=== PATIENT | female | born 1935 | race Caucasian/White ===

== ENCOUNTER 2017-01-11 20:42 | Inpatient (IN) | payer MEDICARE, OTHER ==
[~2017-01-11] VITALS: Ht 165.1 cm; Wt 83.0 kg
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
[2017-01-11] MEDS ORDERED: MAGNESIUM HYDROXIDE 30 ML UDC PO PRN (21:00)
[2017-01-11] MEDS ORDERED: ACETAMINOPHEN 325 MG TABLET PO PRN (21:00)
[2017-01-11] MEDS ORDERED: LORAZEPAM 0.5 MG TABLET PO PRN (21:00)
[2017-01-11] MEDS ORDERED: MAG HYDROX/AL HYDROX/SIMETH 30 ML UDC PO PRN (21:00)
[2017-01-11] MEDS ORDERED: THIA100T13 PO (21:21)
[2017-01-11] MEDS ORDERED: WARF5TAB6 PO (21:21)
[2017-01-11] MEDS ORDERED: DIGO125T PO (21:21)
[2017-01-11] MEDS ORDERED: MULT1TAB73 PO (21:21)
[2017-01-11] MEDS ORDERED: SERT50TA PO (21:21)
[2017-01-11] MEDS ORDERED: METO50TA3 PO (21:21)
[2017-01-11] MEDS ORDERED: OLAN2.5T3 PO (21:21)
[2017-01-11] MEDS ORDERED: SULF1TAB48 PO (21:21)
[2017-01-11] MEDS ORDERED: POTA10CA43 PO (21:21)
[2017-01-11] MEDS ORDERED: MIRT15TA7 PO (21:21)
[2017-01-12 01:02] VITALS: BP 134/85
[2017-01-12 07:13] LABS: BASOPHILS # (AUTO) 0.1 /CMM (0.0-0.2); BASOPHILS % (AUTO) 0.9 % (0.0-2.0); EOSINOPHILS # (AUTO) 0.2 /CMM (0.0-0.7); EOSINOPHILS % (AUTO) 2.7 % (0.0-6.0); HEMATOCRIT 35 % (33-45); HEMOGLOBIN 11.5 g/dL (11.5-14.8); LYMPHOCYTES # (AUTO) 2.7 /CMM (0.8-4.8); LYMPHOCYTES % (AUTO) 33.1 % (20.0-44.0); MEAN CORPUSCULAR HEMOGLOBIN 32 PG (26.0-33.0); MEAN CORPUSCULAR HGB CONC 33 g/dl (31.0-36.0); MEAN CORPUSCULAR VOLUME 96 fL (82-100); MONOCYTES # (AUTO) 0.7 /CMM (0.1-1.30); MONOCYTES % (AUTO) 8.1 % (2.0-12.0); NEUTROPHILS # (AUTO) 4.5 /CMM (1.8-8.9); NEUTROPHILS % (AUTO) 55.2 % (43.0-81.0); PLATELET COUNT (AUTO) 268 /CMM (150-450); RDW COEFFICIENT OF VARIATION 14.8 (11.5-15.0); RED BLOOD CELL COUNT(AUTO) 3.62 MIL/uL (4.0-5.2); WHITE BLOOD COUNT (AUTO) 8.1 K/uL (4.3-11.0)
[2017-01-12 07:22] LABS: ALANINE AMINOTRANSFERASE 15 U/L (12-78); ALBUMIN 2.5 g/dL (3.4-5.0); ALKALINE PHOSPHATASE 74 U/L (46-116); ASPARTATE AMINOTRANSFERASE 18 U/L (15-37); BILIRUBIN,TOTAL 0.3 mg/dL (0.2-1.0); CALCIUM, SERUM 8.9 mg/dL (8.5-10.1); CARBON DIOXIDE 30 mmol/L (21-32); CHLORIDE 105 mmol/L (98-107); CREATININE 0.7 mg/dL (0.6-1.3); GLUCOSE 98 mg/dL (74-106); POTASSIUM 4.2 mmol/L (3.5-5.1); SODIUM SERUM 140 mmol/L (136-145); TOTAL PROTEIN, SERUM 7.1 g/dL (6.4-8.2); UREA NITROGEN, BLOOD 9 mg/dL (7-18)
[2017-01-12 07:29] LABS: CHOLESTEROL 231 mg/dL (<200); HDL CHOLESTEROL 53 mg/dL (40-60); LDL 160 mg/dL (0-99); TRIGLYCERIDES 94 mg/dL (30-150)
[2017-01-12 08:18] VITALS: BP 131/81
[2017-01-12] MEDS ORDERED: MIRTAZAPINE 15 MG TABLET PO SCH (09:00)
[2017-01-12] MEDS ORDERED: OLANZAPINE 2.5 MG TABLET PO SCH (09:00)
[2017-01-12] MEDS ORDERED: SERTRALINE HCL 50 MG TABLET PO SCH (09:00)
[2017-01-12] MEDS: METOPROLOL TARTRATE 50 MG TABLET PO SCH (10:25)
[2017-01-12] MEDS: THIAMINE HCL 100 MG TABLET PO SCH (10:25)
[2017-01-12] MEDS: MULTIVITAMINS,THERAGRAN 1 UDTAB TABLET PO SCH (10:25)
--- NOTE | 2017-01-12 10:59 | NUR ---
JOHNNIE received a call from Elsi at intake. Elsi informed SW that she spoke with Merlyn from [facility] [address], [place] [address], and that Merlyn stated that patient was accepted into [facility]. Elsi stated that Merlyn had a few questions for the SW. JOHNNIE gave Merlyn a call at [phone] and left a voicemail with detailed contact information.
--- NOTE | 2017-01-12 11:11 | NUR ---
WOUND CARE CONSULT PATIENT SEEN AND SKIN INTEGRITY ASSESSMENT DONE. PATIENT PRESENTS WITH DRY SCABBED ABRASIONS TO THE RIGHT AND LEFT ARMS, NO FURTHER GROIN REDNESS OR HIP REDNESS NOTED. PATIENT WITH ESPERANZA AT 18, DOES HAVE OCCASIONAL INCONT, RECOMMEND Z GUARD FOR MOISTURE MANAGEMENT. PATIENT CURRENTLY INDEPENDENT WITH BED MOBILITY AT THIS TIME. ALL DISCUSSED WITH NURSING AT THE BEDSIDE.
[2017-01-12 11:22] LABS: INR 2.23 (0.87-1.13); PROTHROMBIN TIME 23.4 SECS (9.5-12.7)
[2017-01-12] MEDS ORDERED: Z GUARD REMEDY 2 OZ OINT TP PRN (11:30)
[2017-01-12] MEDS: SULFAMETH/TRIMETH 800/160 MG 1 UDTAB TABLET PO SCH ×2 (11:56→16:46)
[2017-01-12] MEDS: POTASSIUM CHLORIDE 10 MEQ TABLET.SA PO SCH (11:56)
--- NOTE | 2017-01-12 12:00 | NUR ---
Initial Discharge Plan: Patient was at a facility, [facility], [address], [place] [id number] but will not continue there. JOHNNIE was informed by intake that patient was accepted into [facility] and JOHNNIE followed up with Merlyn from [facility] [address], [place] [address], and left a voicemail asking Merlyn to call her back. SW left detailed contact information. JOHNNIE also followed up with patient's son, Lucas [phone]. Lucas stated that he was on his way to the hospital and that he would like to speak with JOHNNIE in person. SW will help arrange safe and proper discharge.
[2017-01-12] MEDS: DIGOXIN 0.125 MG TABLET PO SCH ×2 (13:00→13:36)
[2017-01-12 16:00] VITALS: BP 116/63
--- NOTE | 2017-01-12 16:01 | NUR ---
JOHNNIE spoke with Merlyn from [facility] [address], [place] [address], who informed JOHNNIE that patient was not officially accepted yet because a skilled need has to be found. Merlyn asked JOHNNIE to fax over physical therapy assessment and stated that with the assessment, the facility can at least take patient in for a couple of weeks. JOHNNIE stated that there has been no physical therapy assessment yet but told Merlyn that she will follow up with MD and get an order placed. JOHNNIE will fax over PT assessment on Sunday and then the facility can see patient on Sunday.
[2017-01-12] MEDS: OLANZAPINE 2.5 MG TABLET PO SCH (16:46)
[2017-01-12] MEDS: DIVALPROEX SODIUM 125 MG TABLET.DR PO SCH ×2 (16:46→20:38)
[2017-01-12] MEDS: WARFARIN SODIUM 5 MG TABLET PO SCH (16:50)
[2017-01-12 20:00] VITALS: BP 132/69
[2017-01-12] MEDS: MIRTAZAPINE 15 MG TABLET PO SCH (21:13)
[2017-01-13 08:00] VITALS: BP 134/77
[2017-01-13] MEDS: POTASSIUM CHLORIDE 10 MEQ TABLET.SA PO SCH ×2 (09:00→09:38)
[2017-01-13] MEDS: MULTIVITAMINS,THERAGRAN 1 UDTAB TABLET PO SCH ×2 (09:00→09:37)
[2017-01-13] MEDS: OLANZAPINE 2.5 MG TABLET PO SCH ×3 (09:00→17:00)
[2017-01-13] MEDS: METOPROLOL TARTRATE 50 MG TABLET PO SCH ×2 (09:00→09:38)
[2017-01-13] MEDS: DIVALPROEX SODIUM 125 MG TABLET.DR PO SCH ×4 (09:00→21:00)
[2017-01-13] MEDS: SULFAMETH/TRIMETH 800/160 MG 1 UDTAB TABLET PO SCH ×3 (09:00→17:00)
[2017-01-13] MEDS: THIAMINE HCL 100 MG TABLET PO SCH ×2 (09:00→09:37)
--- NOTE | 2017-01-13 10:44 | NUR ---
GPS/RN PT REFUSED ALL AM MEDS OFFERED X3. TR RN OFFERED PT THE MEDS- PT REFUSED WELL. DR WOOD MADE AWARE. WILL CONTINUE TO MONITOR.
[2017-01-13] MEDS: DIGOXIN 0.125 MG TABLET PO SCH (13:00)
[2017-01-13 16:11] VITALS: BP 109/66
[2017-01-13] MEDS: WARFARIN SODIUM 5 MG TABLET PO SCH (17:00)
--- NOTE | 2017-01-13 17:57 | NUR ---
GPS/RN PT REFUSED MEDS OFFERED X3. REFUSE D MEDS FROM TR WRIGHT WELL OFFERED X3
[2017-01-13 20:00] VITALS: BP 134/76
[2017-01-13] MEDS: MIRTAZAPINE 15 MG TABLET PO SCH (21:36)
--- NOTE | 2017-01-13 21:37 | NUR ---
GPS/RN NOTES PT REFUSED NIGHT MEDS OFFERED X3. ENCOURAGED FOR MEDS STILL REFUSED ,PT. STATED I WILL NOT TAKING MEDS, WILL CONTINUE TO ENCOURAGED TO COMPLY MD REGIMEN
--- NOTE | 2017-01-13 21:41 | NUR ---
GPS/RN NOTES PT REFUSED TO PROVIED URINE SPECIMEN . ENCOURAGED FOR URINE SPECIMEN STILL REFUSED , WILL CONTINUE TO ENCOURAGED TO PROVIDE URINE SPECIMEN.
[2017-01-13 21:48] LABS: INR 3.16 (0.87-1.13); PROTHROMBIN TIME 33.3 SECS (9.5-12.7)
--- NOTE | 2017-01-14 07:07 | NUR ---
GPS/RN NOTES PT REFUSED TO PROVIED URINE SPECIMEN . ENCOURAGED FOR URINE SPECIMEN STILL REFUSED , WILL CONTINUE TO ENCOURAGED TO PROVIDE URINE SPECIMEN, WILL ENDORSE TO NEXT SHIFT FOR CONTINUITY OF CARE.
[2017-01-14 07:12] LABS: INR 2.55 (0.87-1.13); PROTHROMBIN TIME 26.8 SECS (9.5-12.7)
[2017-01-14 08:12] VITALS: BP 120/61
[2017-01-14] MEDS: OLANZAPINE 2.5 MG TABLET PO SCH ×2 (09:00→17:00)
[2017-01-14] MEDS: METOPROLOL TARTRATE 50 MG TABLET PO SCH (09:00)
[2017-01-14] MEDS: DIVALPROEX SODIUM 125 MG TABLET.DR PO SCH ×3 (09:00→21:00)
[2017-01-14] MEDS: MULTIVITAMINS,THERAGRAN 1 UDTAB TABLET PO SCH (09:00)
[2017-01-14] MEDS: THIAMINE HCL 100 MG TABLET PO SCH (09:00)
[2017-01-14] MEDS: POTASSIUM CHLORIDE 10 MEQ TABLET.SA PO SCH (09:00)
[2017-01-14] MEDS: SULFAMETH/TRIMETH 800/160 MG 1 UDTAB TABLET PO SCH ×2 (09:00→17:00)
--- NOTE | 2017-01-14 09:45 | NUR ---
GPS/RN PT REFUSED AM MEDS OFFERED X3.
[2017-01-14] MEDS: DIGOXIN 0.125 MG TABLET PO SCH (12:44)
--- NOTE | 2017-01-14 13:00 | NUR ---
GPS/RN PT REFUSED 1300 MEDS OFFERED X3.
[2017-01-14 16:00] VITALS: BP 100/67
[2017-01-14] MEDS: WARFARIN SODIUM 5 MG TABLET PO SCH (17:00)
[2017-01-14 19:56] VITALS: BP 105/59
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
[2017-01-14] MEDS: MUPIROCIN OINT 2% 22 GM TUBE SCH (21:00)
[2017-01-14] MEDS: MIRTAZAPINE 15 MG TABLET PO SCH (22:00)
--- NOTE | 2017-01-15 06:47 | NUR ---
Refused to allow to take pictures of skin
[2017-01-15 08:00] VITALS: BP 149/100
[2017-01-15] MEDS: METOPROLOL TARTRATE 50 MG TABLET PO SCH (08:05)
[2017-01-15] MEDS: MUPIROCIN OINT 2% 22 GM TUBE SCH ×2 (08:05→20:58)
[2017-01-15] MEDS: SULFAMETH/TRIMETH 800/160 MG 1 UDTAB TABLET PO SCH ×2 (08:05→16:28)
[2017-01-15] MEDS: DIVALPROEX SODIUM 125 MG TABLET.DR PO SCH ×3 (08:05→21:00)
[2017-01-15] MEDS: POTASSIUM CHLORIDE 10 MEQ TABLET.SA PO SCH (08:05)
[2017-01-15] MEDS: MULTIVITAMINS,THERAGRAN 1 UDTAB TABLET PO SCH (08:06)
[2017-01-15] MEDS: OLANZAPINE 2.5 MG TABLET PO SCH ×2 (08:06→16:28)
[2017-01-15] MEDS: THIAMINE HCL 100 MG TABLET PO SCH (08:06)
[2017-01-15 10:22] LABS: INR 1.98 (0.87-1.13); PROTHROMBIN TIME 20.7 SECS (9.5-12.7)
[2017-01-15] MEDS: DIGOXIN 0.125 MG TABLET PO SCH (12:48)
[2017-01-15 16:00] VITALS: BP 140/90
[2017-01-15] MEDS: WARFARIN SODIUM 5 MG TABLET PO SCH (16:28)
--- NOTE | 2017-01-15 17:00 | NUR ---
[id number]: PT WAS SITTING THE CHAIR IN THE DAYROOM. NOTED SKIN TEAR ON RT TRUONG. CLEANSE WITH NS, PAT DRY, AIR DRY. TRIGGERED WOUND CONSULT. PICTURE TAKEN
[2017-01-15 20:42] VITALS: BP 120/66
[2017-01-15] MEDS: MIRTAZAPINE 15 MG TABLET PO SCH (21:00)
[2017-01-16] MEDS: TEMAZEPAM 7.5 MG CAPSULE PO PRN (02:19)
--- NOTE | 2017-01-16 02:26 | NUR ---
Patient still awake,with difficulty falling asleep,offered Restoril 7.5 mg PO as per clinical assessment however ,patient refused to take the medication.
[2017-01-16 08:17] VITALS: BP 133/95
[2017-01-16] MEDS: POTASSIUM CHLORIDE 10 MEQ TABLET.SA PO SCH (08:55)
[2017-01-16] MEDS: THIAMINE HCL 100 MG TABLET PO SCH (08:55)
[2017-01-16] MEDS: SULFAMETH/TRIMETH 800/160 MG 1 UDTAB TABLET PO SCH ×2 (08:55→16:52)
[2017-01-16] MEDS: METOPROLOL TARTRATE 50 MG TABLET PO SCH (08:55)
[2017-01-16] MEDS: MULTIVITAMINS,THERAGRAN 1 UDTAB TABLET PO SCH (08:55)
[2017-01-16] MEDS: OLANZAPINE 2.5 MG TABLET PO SCH ×2 (08:56→16:54)
[2017-01-16] MEDS: DIVALPROEX SODIUM 125 MG TABLET.DR PO SCH ×3 (08:56→21:24)
[2017-01-16] MEDS: MUPIROCIN OINT 2% 22 GM TUBE SCH ×2 (09:05→21:45)
--- NOTE | 2017-01-16 09:45 | NUR ---
child care worker faxed PT assessment to Merlyn from [facility] (phone: [phone]/ fax: [phone]) [address] [place] [address]. child care worker will follow-up.
[2017-01-16 10:00] LABS: INR 1.46 (0.87-1.13); PROTHROMBIN TIME 15.2 SECS (9.5-12.7)
[2017-01-16] MEDS: DIGOXIN 0.125 MG TABLET PO SCH (13:08)
--- NOTE | 2017-01-16 15:11 | NUR ---
WOUND CARE: PT SEEN FOR RT LOWER LEG DRY ABRASION WITH BRUISING. PT FOLLOWED BY PLASTICS TEAM. DEFER TO SURGICAL TEAM FOR SKIN/WOUND TREATMENT PLAN. WILL SEE PRN. IN AGREEMENT WITH PLAN OF CARE.
[2017-01-16 16:00] VITALS: BP 99/58
[2017-01-16] MEDS: WARFARIN SODIUM 5 MG TABLET PO SCH (16:53)
[2017-01-16 20:26] VITALS: BP 113/72
[2017-01-16] MEDS: MIRTAZAPINE 15 MG TABLET PO SCH (21:39)
[2017-01-17 08:00] VITALS: BP 99/67
--- NOTE | 2017-01-17 08:28 | NUR ---
JOHNNIE followed up with Merlyn from [facility] (phone: [phone]/ fax: [phone]) [address] [place] [address]. Merlyn stated that she received the PT assessment fax and stated that she has to follow up with her DoN. Merlyn stated that there is still hesitation regarding the patient but that she is going to push for the facility to take patient and provide placement. JOHNNIE will continue to follow up and check in on progress.
[2017-01-17] MEDS: OLANZAPINE 2.5 MG TABLET PO SCH ×2 (09:00→16:07)
[2017-01-17] MEDS: DIVALPROEX SODIUM 125 MG TABLET.DR PO SCH ×4 (09:00→21:59)
[2017-01-17] MEDS: SULFAMETH/TRIMETH 800/160 MG 1 UDTAB TABLET PO SCH ×2 (09:00→16:07)
[2017-01-17] MEDS: MUPIROCIN OINT 2% 22 GM TUBE SCH ×2 (09:00→22:00)
[2017-01-17] MEDS: MULTIVITAMINS,THERAGRAN 1 UDTAB TABLET PO SCH (09:00)
[2017-01-17] MEDS: METOPROLOL TARTRATE 50 MG TABLET PO SCH (09:00)
[2017-01-17] MEDS: POTASSIUM CHLORIDE 10 MEQ TABLET.SA PO SCH (09:00)
[2017-01-17] MEDS: THIAMINE HCL 100 MG TABLET PO SCH (09:00)
--- NOTE | 2017-01-17 09:04 | NUR ---
PT REFUSED PO MEDICATION IN THE AM. PT STATED THAT SHE WILL NOT TAKE HER MEDICATION AND WANTS TO BE LEFT ALONE.
[2017-01-17] MEDS: DIGOXIN 0.125 MG TABLET PO SCH (12:23)
[2017-01-17] MEDS: WARFARIN SODIUM 5 MG TABLET PO SCH (16:07)
[2017-01-17 16:53] VITALS: BP 108/69
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
[2017-01-17 20:12] VITALS: BP 159/77
[2017-01-17] MEDS: MIRTAZAPINE 15 MG TABLET PO SCH ×2 (21:30→21:59)
--- NOTE | 2017-01-17 21:30 | NUR ---
GPS RN NOTE, PATIENT SPIT OUT HER REMERON 15MG AND DEPAKOTE 125MG ON THE FLOOR. WHEN PATIENT ASKED WHY SHE SPIT OUT HER MEDICATION PATIENT STATED, " FUCK YOU AND FUCK THAT MEDICATION I DON'T WANT IT AND GET ME OUT OF HERE TONIGHT ". PATIENT ASSISTED TO GERIATRIC CHAIR AND PLACED IN THE DINNING ROOM. EDUCATED THE PATIENT ON THE RISKS AND BENEFITS OF TAKING AND REFUSING AFOREMENTIONED MEDICATIONS. WILL CONTINUE TO MONITOR THIS PATIENT.
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
[2017-01-17] MEDS ORDERED: OLANZAPINE 10 MG VIAL IM ONE (23:59)
[2017-01-18] MEDS ORDERED: OLANZAPINE 10 MG VIAL IM ONE
[2017-01-18] MEDS: DIVALPROEX SODIUM 125 MG TABLET.DR PO SCH ×3 (08:12→21:37)
[2017-01-18] MEDS: SULFAMETH/TRIMETH 800/160 MG 1 UDTAB TABLET PO SCH ×2 (08:12→17:00)
[2017-01-18] MEDS: MUPIROCIN OINT 2% 22 GM TUBE SCH ×2 (08:12→21:00)
[2017-01-18] MEDS: POTASSIUM CHLORIDE 10 MEQ TABLET.SA PO SCH (08:13)
[2017-01-18] MEDS: METOPROLOL TARTRATE 50 MG TABLET PO SCH (08:13)
[2017-01-18] MEDS: MULTIVITAMINS,THERAGRAN 1 UDTAB TABLET PO SCH (08:13)
[2017-01-18] MEDS: THIAMINE HCL 100 MG TABLET PO SCH (08:18)
[2017-01-18] MEDS: OLANZAPINE 2.5 MG TABLET PO SCH ×2 (08:19→17:00)
[2017-01-18 08:30] VITALS: BP 127/80
[2017-01-18 09:09] LABS: INR 1.79 (0.87-1.13); PROTHROMBIN TIME 18.7 SECS (9.5-12.7)
[2017-01-18] MEDS: DIGOXIN 0.125 MG TABLET PO SCH (13:00)
[2017-01-18] MEDS: WARFARIN SODIUM 5 MG TABLET PO SCH (17:00)
[2017-01-18 17:12] VITALS: BP 101/73
--- NOTE | 2017-01-18 17:30 | NUR ---
DR. VILLAR MADE AWARE OF THE [facility] HEARING SCHEDULE FOR 3:00 PM ON 01/19/17.
[2017-01-18 20:00] VITALS: BP 124/82
[2017-01-18] MEDS: MIRTAZAPINE 15 MG TABLET PO SCH (21:37)
[2017-01-19 08:00] VITALS: BP_SYST 100; BP_SYST 110; BP_DIAS 62; BP_DIAS 70
[2017-01-19] MEDS: OLANZAPINE 2.5 MG TABLET PO SCH (09:46)
[2017-01-19] MEDS: DIVALPROEX SODIUM 125 MG TABLET.DR PO SCH ×3 (09:46→21:30)
[2017-01-19] MEDS: THIAMINE HCL 100 MG TABLET PO SCH (09:46)
[2017-01-19] MEDS: SULFAMETH/TRIMETH 800/160 MG 1 UDTAB TABLET PO SCH ×2 (09:46→17:17)
[2017-01-19] MEDS: POTASSIUM CHLORIDE 10 MEQ TABLET.SA PO SCH (09:46)
[2017-01-19] MEDS: METOPROLOL TARTRATE 50 MG TABLET PO SCH (09:47)
[2017-01-19] MEDS: MULTIVITAMINS,THERAGRAN 1 UDTAB TABLET PO SCH (09:47)
[2017-01-19] MEDS: MUPIROCIN OINT 2% 22 GM TUBE SCH ×2 (09:52→21:35)
[2017-01-19 10:03] LABS: INR 1.53 (0.87-1.13)
[2017-01-19] MEDS: DIGOXIN 0.125 MG TABLET PO SCH (12:23)
--- NOTE | 2017-01-19 12:30 | NUR ---
DR. BARNEY MADE AWARE OF THE PT/ INR AND TO CONTINUE SAME DOSE OF COUMADIN 5 MG PO.
--- NOTE | 2017-01-19 12:40 | NUR ---
JOHNNIE spoke with Merlyn from [facility] (phone: [phone]/ fax: [phone]) who stated that she was "sure that she can get patient approved." Merlyn asked JOHNNIE to fax over progress notes and JOHNNIE complied. JOHNNIE will follow up on Sunday.
[2017-01-19 16:00] VITALS: BP 119/62
[2017-01-19] MEDS ORDERED: HALOPERIDOL LACTATE INJ 5 MG/ML VIAL IM PRN (17:00)
[2017-01-19] MEDS: WARFARIN SODIUM 5 MG TABLET PO SCH (17:17)
[2017-01-19 20:00] VITALS: BP 114/84
[2017-01-19] MEDS: HALOPERIDOL 5 MG TABLET PO SCH (21:29)
[2017-01-19] MEDS: MIRTAZAPINE 15 MG TABLET PO SCH (21:30)
[2017-01-20 08:00] VITALS: BP 123/69
[2017-01-20 10:12] LABS: CALCIUM, SERUM 8.6 mg/dL (8.5-10.1); CARBON DIOXIDE 26 mmol/L (21-32); CHLORIDE 104 mmol/L (98-107); CREATININE 0.8 mg/dL (0.6-1.3); GLUCOSE 90 mg/dL (74-106); MAGNESIUM 1.5 mg/dL (1.8-2.4); POTASSIUM 3.9 mmol/L (3.5-5.1); SODIUM SERUM 138 mmol/L (136-145); UREA NITROGEN, BLOOD 9 mg/dL (7-18)
[2017-01-20 10:15] LABS: INR 1.58 (0.87-1.13); PROTHROMBIN TIME 16.5 SECS (9.5-12.7)
[2017-01-20] MEDS: SULFAMETH/TRIMETH 800/160 MG 1 UDTAB TABLET PO SCH ×2 (10:29→17:36)
[2017-01-20] MEDS: DIVALPROEX SODIUM 125 MG TABLET.DR PO SCH ×3 (10:29→20:10)
[2017-01-20] MEDS: POTASSIUM CHLORIDE 10 MEQ TABLET.SA PO SCH (10:29)
[2017-01-20] MEDS: METOPROLOL TARTRATE 50 MG TABLET PO SCH (10:29)
[2017-01-20] MEDS: THIAMINE HCL 100 MG TABLET PO SCH (10:29)
[2017-01-20] MEDS: MULTIVITAMINS,THERAGRAN 1 UDTAB TABLET PO SCH (10:29)
[2017-01-20] MEDS: MUPIROCIN OINT 2% 22 GM TUBE SCH ×2 (10:30→20:12)
[2017-01-20] MEDS ORDERED: MAGNESIUM OXIDE 400 MG TABLET PO ONE ×2 (12:00→17:30)
[2017-01-20 16:00] VITALS: BP 103/81
[2017-01-20] MEDS: WARFARIN SODIUM 7.5 MG TABLET PO SCH (17:00)
--- NOTE | 2017-01-20 17:30 | NUR ---
dr. webb,dr. toth in to see pt.
[2017-01-20] MEDS: DIGOXIN 0.125 MG TABLET PO SCH (17:36)
--- NOTE | 2017-01-20 18:28 | NUR ---
reluctantly taking meds and refusing dinner.did take mg replacement meds and coumadin this fatemeh.
--- NOTE | 2017-01-20 19:24 | NUR ---
GPS/RN NOTE: RESTING IN BED, IRRITABLE, UNCOOPERATIVE. NO APPARENT DISTRESS NOTED. INTRODUCED MYSELF THE NURSE FO THE NIGHT, BUT SEEMS NOT TO UNDERSTAND, A/O X2.
[2017-01-20 20:00] VITALS: BP 111/51
[2017-01-20] MEDS: HALOPERIDOL 5 MG TABLET PO SCH (21:07)
[2017-01-20] MEDS: MIRTAZAPINE 15 MG TABLET PO SCH (21:07)
[2017-01-21 07:10] LABS: INR 2.04 (0.87-1.13); PROTHROMBIN TIME 21.4 SECS (9.5-12.7)
[2017-01-21 08:02] VITALS: BP 106/92
[2017-01-21] MEDS: MUPIROCIN OINT 2% 22 GM TUBE SCH ×2 (08:35→22:07)
[2017-01-21] MEDS: SULFAMETH/TRIMETH 800/160 MG 1 UDTAB TABLET PO SCH ×2 (08:35→16:24)
[2017-01-21] MEDS: DIVALPROEX SODIUM 125 MG TABLET.DR PO SCH ×3 (08:35→21:56)
[2017-01-21] MEDS: POTASSIUM CHLORIDE 10 MEQ TABLET.SA PO SCH (08:35)
[2017-01-21] MEDS: THIAMINE HCL 100 MG TABLET PO SCH (08:36)
[2017-01-21] MEDS: MULTIVITAMINS,THERAGRAN 1 UDTAB TABLET PO SCH (08:36)
[2017-01-21] MEDS: METOPROLOL TARTRATE 50 MG TABLET PO SCH (08:36)
[2017-01-21] MEDS: DIGOXIN 0.125 MG TABLET PO SCH (13:31)
[2017-01-21 16:00] VITALS: BP 120/80
[2017-01-21] MEDS: WARFARIN SODIUM 7.5 MG TABLET PO SCH (16:25)
[2017-01-21 20:15] VITALS: BP 109/71
[2017-01-21] MEDS: HALOPERIDOL 5 MG TABLET PO SCH (21:56)
[2017-01-21] MEDS: MIRTAZAPINE 15 MG TABLET PO SCH (21:57)
[2017-01-22 08:24] VITALS: BP 125/90
[2017-01-22] MEDS: SULFAMETH/TRIMETH 800/160 MG 1 UDTAB TABLET PO SCH ×2 (08:57→16:01)
[2017-01-22] MEDS: POTASSIUM CHLORIDE 10 MEQ TABLET.SA PO SCH (08:57)
[2017-01-22] MEDS: MULTIVITAMINS,THERAGRAN 1 UDTAB TABLET PO SCH (08:57)
[2017-01-22] MEDS: DIVALPROEX SODIUM 125 MG TABLET.DR PO SCH ×3 (08:57→21:03)
[2017-01-22] MEDS: METOPROLOL TARTRATE 50 MG TABLET PO SCH (08:57)
[2017-01-22] MEDS: THIAMINE HCL 100 MG TABLET PO SCH (08:57)
[2017-01-22] MEDS: MUPIROCIN OINT 2% 22 GM TUBE SCH ×2 (09:02→21:04)
--- NOTE | 2017-01-22 09:57 | NUR ---
JHONNIE faxed over updated progress notes to Merlyn from [facility] (phone: [phone]/ fax: [phone]
[2017-01-22 11:45] LABS: INR 3.9 (0.87-1.13); PROTHROMBIN TIME 41.1 SECS (9.5-12.7)
[2017-01-22] MEDS: DIGOXIN 0.125 MG TABLET PO SCH (12:13)
--- NOTE | 2017-01-22 15:35 | NUR ---
JOHNNIE left a voicemail for Merlyn from [facility] [address], [place] [address], confirming placement. JOHNNIE asked Merlyn to follow up.
--- NOTE | 2017-01-22 15:36 | NUR ---
SW spoke to pt's son Lucas [phone] and gave him an update on pt's status / discharge.
[2017-01-22] MEDS: WARFARIN SODIUM 7.5 MG TABLET PO SCH (16:02)
[2017-01-22 16:08] VITALS: BP 100/62
[2017-01-22 20:02] VITALS: BP 102/66
[2017-01-22] MEDS: HALOPERIDOL 5 MG TABLET PO SCH (21:03)
[2017-01-22] MEDS: MIRTAZAPINE 15 MG TABLET PO SCH (21:04)
[2017-01-23] MEDS: TEMAZEPAM 7.5 MG CAPSULE PO PRN (00:57)
[2017-01-23 08:00] VITALS: BP 111/73
[2017-01-23] MEDS: METOPROLOL TARTRATE 50 MG TABLET PO SCH (09:00)
[2017-01-23] MEDS: SULFAMETH/TRIMETH 800/160 MG 1 UDTAB TABLET PO SCH ×2 (09:11→16:31)
[2017-01-23] MEDS: POTASSIUM CHLORIDE 10 MEQ TABLET.SA PO SCH (09:11)
[2017-01-23] MEDS: THIAMINE HCL 100 MG TABLET PO SCH (09:11)
[2017-01-23] MEDS: DIVALPROEX SODIUM 125 MG TABLET.DR PO SCH ×2 (09:11→16:31)
[2017-01-23] MEDS: MULTIVITAMINS,THERAGRAN 1 UDTAB TABLET PO SCH (09:11)
[2017-01-23] MEDS: MUPIROCIN OINT 2% 22 GM TUBE SCH (09:17)
--- NOTE | 2017-01-23 11:51 | NUR ---
Discharge Note: Patient will be discharged to [facility] [address], [place] [address] via ambulance at 4pm. bag shop worker confirmed this with Merlyn from [facility] who stated that everything was set. bag shop worker also called and spoke with Patients son, Lucas [phone], who is aware of discharge and is agreeable with the plan. Patient will follow up with her psychiatrist, Dr. Kadie Pricee[address], [place], [place] [id number] [phone] on Sunday, 01/24 at 10am. Patient will follow up with her medical doctor, Dr. Zack Broussard[address], [place], [place] [id number] [phone] by the end of the week, projected on 01/25. Patient has no substance use or alcohol use. Patient is not a smoker.
[2017-01-23] MEDS: DIGOXIN 0.125 MG TABLET PO SCH (13:13)
--- NOTE | 2017-01-23 13:55 | NUR ---
JOHNNIE faxed over microbiology report to [facility], fax number [phone]
[2017-01-23 14:32] LABS: INR 3.55 (0.87-1.13); PROTHROMBIN TIME 37.4 SECS (9.5-12.7)
--- NOTE | 2017-01-23 15:24 | NUR ---
[id number]: NOTIFIED DR. JUAREZ ABOUT PT= 37.4 AND INR= 3.55. DOCTOR LARRY ORDERED TO HOLD COUMADIN DOSAGE FOR TODAY AND RECHECK PT AND INR FOR TOMORROW. NOTIFIED [facility] AND SPOKE WITH ROX PAYROLL COORDINATOR ABOUT THE PT AND INR RESULTS AND PT IS ON MRSA POSITIVE FOR ISOLATION.
[2017-01-23 15:44] VITALS: BP 124/83
[2017-01-23] MEDS: WARFARIN SODIUM 7.5 MG TABLET PO SCH (16:29)
--- NOTE | 2017-01-23 17:00 | NUR ---
[id number]: PT IS 82 YEARS OLD TO [facility] AT [address], [place] [address] IN STABLE CONDITION. COMPLIANT WITH MEDICATIONS, COOPERATIVE WITH TREATMENT PLANS. PT DENIES SI/HI AND INSTRUCTED TO GO TO THE CLOSEST ER IF DEVELOPING SI/HI. BEHAVIOR IMPROVED, PSYCHIATRIC TX PLANS MET, MEDICAL TX PLANS DEFERRED FOR CONTINUAL MONITORING. EDUCATED PT ABOUT AFTER CARE PLAN AND COPY PROVIDED. RETURNED PERSONAL BELONGINGS TO PT. MEDICATIONS RECONCILED WITH DR. JUAREZ AND DR. DR. VILLAR. [facility]. PT REFUSED TO SIGN DISCHARGE PAPERWORK. SKIN ASSESSMENT DONE. PT LEFT VIA AMBULANCE.
== END 2017-01-23 17:00 | DRG 885 ==
LOC: GPS 20:42
PROVIDERS: ADMIT Psychiatry & Neurology Psychiatry; ATTEND Nurse Practitioner Acute Care
DX: F29 Unspecified psychosis not due to a substance or known physiological condition (principal); D68.59 Other primary thrombophilia; F03.91 Unspecified dementia, unspecified severity, with behavioral disturbance; I48.2 Chronic atrial fibrillation; E44.1 Mild protein-calorie malnutrition; F39 Unspecified mood [affective] disorder; D63.8 Anemia in other chronic diseases classified elsewhere; Z73.6 Limitation of activities due to disability; E66.9 Obesity, unspecified; F10.21 Alcohol dependence, in remission; I10 Essential (primary) hypertension; L30.4 Erythema intertrigo; Z68.30 Body mass index [BMI] 30.0-30.9, adult; Z22.322 Carrier or suspected carrier of Methicillin resistant Staphylococcus aureus; Z79.01 Long term (current) use of anticoagulants
CPT/HCPCS: 36415; 80048-TC; 80053-TC; 80061-TC; 80162-TC; 83735-TC; 85025-TC; 85610-TC; 87081-TC; 97110-TC; 97116-TC; 97530-TC; J3490